=== PATIENT | female | born 1955 | race Caucasian/White ===

== ENCOUNTER 2017-12-15 09:56 | Emergency (ER) | payer OTHER ==
[~2017-12-15] VITALS: Ht 162.6 cm; Wt 136.1 kg
[~2017-12-15 09:56] MED LIST: AMLODIPINE BESY10 M1 PO; ASPIRIN EC81 M1 PO; ATHENOL325 MG PO; ATORVASTATIN CA40 M1 PO; AUGMENTIN 875-1 EACH PO; CHERATUSSIN AC118 M1 PO; FERROUS SULFAT325 M3 PO; HUMALOG KW100 UNIT/1 SC; LANTUS SOL100 UNIT/1 SC; LEVEMIR FL100 UNIT/1 SC; LISINOPRIL-HCT1 EACH PO; TRADJENTA5 M1 PO; VITAMIN D2000 UNIT PO
--- NOTE | 2017-12-15 10:03 | ED GENERAL ADULT ---
History of Present Illness General Chief Complaint: General Adult Stated Complaint: GENERAL WEAKNESS Source: patient, family, old records Exam Limitations: no limitations Vital Signs & Intake/Output Vital Signs & Intake/Output Vital Signs Date Time Temp Pulse Resp B/P B/P Pulse O2 O2 Flow FiO2 Mean Ox Delivery Rate 12/15 1303 97.6 90 18 133/62 97 Room Air 12/15 1033 97.2 80 18 131/80 96 Room Air 12/15 1010 95 Room Air Allergies Coded Allergies: NO KNOWN ALLERGIES (12/13/17) Reconcile Medications Acetaminophen (Athenol) 325 MG TABLET 2 TAB PO DAILY PAIN (Reported) Albuterol Sulfate (Proair Hfa) 90 MCG HFA.AER.AD 2 PUF INH Q4-6 PRN PRN COUGH/ SOB Amlodipine Besylate 10 MG TABLET 1 TAB PO DAILY BP (Reported) Amlodipine Besylate 10 MG TABLET 1 TAB PO DAILY htn Amoxicillin/Potassium Clav (Augmentin 875-125 Tablet) 875 MG-125 MG TABLET 1 TAB PO BID bronchitis, mild uti Aspirin (Ecotrin*) 81 MG TABLET.DR 1 TAB PO DAILY HEART/BLOOD (Reported) Atorvastatin Calcium 40 MG TABLET 1 TAB PO DAILY CHOLESTEROL (Reported) Cholecalciferol (Vitamin D3) (Vitamin D) 2,000 UNIT CAPSULE 1 CAP PO DAILY SUPPLEMENT (Reported) Codeine Phosphate/Guaifenesi (Cheratussin AC Syrup) 10 MG-100 MG/5 ML LIQUID 10 ML PO Q6H PRN COUGH Ferrous Sulfate 325 MG (65 MG IRON) TABLET 1 TAB PO DAILY SUPPLEMENT ( Reported) Insulin Detemir (Levemir Flextouch) 100 UNIT/ML (3 ML) INSULN.PEN 12 UNITS SC QPM DM (Reported) Insulin Detemir (Levemir Flextouch) 100 UNIT/ML (3 ML) INSULN.PEN 12 UNITS SC QHS diabetes Insulin Lispro (Humalog Kwikpen U-100) 100 UNIT/ML INSULN.PEN 15 UNITS SC DAILY DM (Reported) Insulin Lispro (Humalog Kwikpen U-100) 100 UNIT/ML INSULN.PEN 15 UNIT SC ONCE DAILY DIABETES Linagliptin (Tradjenta) 5 MG TABLET 1 TAB PO DAILY DM (Reported) Lisinopril/Hydrochlorothiazide (Lisinopril-Hctz 20-12.5 MG Tab) 20 MG-12.5 MG TABLET 1 TAB PO DAILY BP (Reported) Triage Nurses Notes Reviewed? yes Onset: Gradual Duration: worse persistent since (2 DAYS) Timing: recent history Injury Environment: home Severity: moderate No Modifying Factors: none Associated Symptoms: cough HPI: Patient is a 62-year-old female with history of diabetes presenting to the emergency department with chief complaint of generalized malaise, nonproductive cough has been getting worse over the past 2 days. Patient presents as she was seen and evaluated here 2 days ago, diagnosed with hyperglycemia and urinary tract infection. She's been taking the medication they started her on for the diabetes as well as the medication prescribed for the urinary tract infection. Patient reports that the cough is still persistent. Denies any chest pain or palpitations. Shortness of breath only present with a cough. Denies any unilateral leg swelling. No recent surgery. Patient currently visiting here from [place] because a family member . She does report that she's been under a lot of stress. Denies any increasing depression or anxiety. Reports that she has not had a Swathi over the past several days. (Joya Zuniga) Past History Travel History Traveled to [place] past 21 day No Medical History Any Pertinent Medical History? see below for history Neurological: NONE Cardiovascular: hypertension Respiratory: NONE Gastrointestinal: NONE Hepatic: NONE Renal: NONE Musculoskeletal: osteoarthritis Psychiatric: NONE Endocrine: diabetes Blood Disorders: NONE Surgical History Surgical History: non-contributory Psychosocial History What is your primary language Irish Tobacco Use: Quit >30 days ago Family History Hx Contributory? No (Joya Zuniga) Review of Systems Review of Systems Constitutional: Reports: see HPI, malaise, weakness. Comments Review of systems: See HPI, All other systems negative. Constitutional, no chills fever or weight loss HEENT: No visual changes no sore throat Cardiovascular: No chest pain ,palpitation , orthopnea or ankle swelling Skin, no jaundice no rashes Respiratory: No dyspnea sputum or hemoptysis GI: No nausea no vomiting : No dysuria No hematuria Muscle skeletal: no back pain, no neck pain, Neurologic: No numbness no confusion, no headaches Psych: No stress anxiety or depression,. Heme/endocrine: No bruising no bleeding no polyuria or polydipsia Immunology: No splenectomy or history of AIDS (Joya Zuniga) Physical Exam Physical Exam General Appearance: well developed/nourished, no apparent distress, alert, awake , comfortable, obese Comments: Well-developed well-nourished person in no acute distress HEENT: Pupils equally round and reactive to light and accommodation. Nose is atraumatic. External auditory canal and Tympanic membranes clear. Pharynx normal. No swelling or edema. Clear nasal discharge. Clearing secretions without difficulties. Neck: Supple, no lymphadenopathy, normal range of motion without pain or tenderness Back: Nontender Cardiovascular: Regular rate and rhythms no murmurs rubs or gallops Respiratory: Chest nontender. No respiratory distress.breath sounds clear to auscultation bilaterally. DRY REACTIVE COUGH ON EXAM. Abdomen: Soft, nontender nondistended, no appreciable organomegaly. Normal bowel sounds. No ascites, NO REBOUND OR GAURDING. Extremity: No edema, no calf tenderness to palpation, normal and equal pulses. Muscular strength is 5 out of 5 in the upper extremities bilaterally. Business Travel Consultant strength is equal and symmetric bilaterally. Muscular strength of lower extremities is 4 out of 5 bilaterally. Neuro: Alert oriented x3, motor sensory normal, cranial nerves II through XII grossly intact. Cerebellar testing is unremarkable. Skin: No appreciable rash on exposed skin, skin is warm and dry. Psych: Mood and affect is normal, memory and judgment is normal. Core Measures ACS in differential dx? No CVA/TIA Diagnosis: No Sepsis Present: No Sepsis Focused Exam Completed? No (Claudia LAUGHLIN,Joya) Progress Differential Diagnoses I considered the following diagnoses in my evaluation of the patient: DKA, hyperglycemia, mentation and complains, UTI,ELECTROLYTE ABNORMALITY Plan of Care: Orders Procedure Date/time Status Consistent Carbohydrate 1 12/15 D Active Add-on Test (ER Only) 12/15 1144 Active URINALYSIS 12/15 1144 Complete SERUM OSMOLALITY 12/15 1047 Complete ACETONE 12/15 1047 Complete MISTAKE 12/15 1022 Active RAPID VIRAL INFLUENZA A 12/15 1022 Complete TROPONIN LEVEL 12/15 1021 Complete COMPREHENSIVE METABOLIC PANEL 12/15 1021 Complete CBC WITHOUT DIFFERENTIAL 12/15 1021 Complete FingerStick- Glucose 12/15 1002 Active EKG 12/15 1002 Active Current Medications Sig/Mitzy Start time Last Medication Dose Stop Time Status Admin Sodium Chloride 1,000 ML BOLUS ONE 12/15 1330 AC 12/15 (Normal Saline 0.9%) 12/15 1429 1331 Laboratory Tests 12/15/17 1230: Urinalysis LIGHT H, Urine Color YEL, Urine Clarity HAZY H, Urine pH 6.0, Ur Specific [place] 1.025, Urine Protein 30 H, Urine Ketones NEG, Urine Nitrite NEG, Urine Bilirubin NEG@ICTO, Urine Urobilinogen 0.2, Ur Leukocyte Esterase SMALL H, Ur Microscopic SEDIMENT EXAMINED, Urine RBC 3-5, Urine WBC 25-50 H, Ur Epithelial Cells MOD H, Urine Bacteria MANY H, Urine Hemoglobin SMALL H, Urine Glucose NEG 12/15/17 1047: Anion Gap 16, Estimated GFR 45 L, BUN/Creatinine Ratio 15.8, Glucose 234 H, Serum Osmolality 294, Calcium 9.2, Total Bilirubin 0.5, AST 19, ALT 23, Alkaline Phosphatase 98, Troponin I < 0.01, Total Protein 6.5, Albumin 3.6, Globulin 2.9, Albumin/Globulin Ratio 1.2, CBC w Diff NO MAN DIFF REQ, RBC 3.80 L, MCV 78.3 L , MCH 25.7 L, MCHC 32.9 L, RDW 15.3 H, MPV 6.3 L, Gran % 79.5 H, Lymphocytes % 10.5 L, Monocytes % 6.7, Eosinophils % 2.9, Basophils % 0.4, Absolute Granulocytes 6.5, Absolute Lymphocytes 0.9 L, Absolute Monocytes 0.5, Absolute Eosinophils 0.2, Absolute Basophils 0, Acetone Level NEGATIVE Microbiology 12/15 1048 NASOPHARYN: Influenza Virus A & B Rapid Smear - COMP Diagnostic Imaging: Viewed by Me: Radiology Read. Discussed w/RAD: Radiology Read. Radiology Impression: PATIENT: YUSRA POTTER PRESENT AGE: 62 PATIENT ACCOUNT NO: [id number] : 53 LOCATION: [facility] ORDERING PHYSICIAN: Joya LAUGHLIN SERVICE DATE: 12/15/171026 EXAM TYPE: RAD - XRY-CHEST XRAY, TWO VIEWS EXAMINATION: XR CHEST CLINICAL INFORMATION: Cough. Evaluate for pneumonia. COMPARISON: Previous chest x-ray and chest CT 12/13/2017 TECHNIQUE: 2 views of the chest were obtained. FINDINGS: The cardiac silhouette is upper normal in size. The pulmonary patricia are prominent related to hilar adenopathy. Mediastinal contours are unremarkable. There are multiple pulmonary nodules similar to previous exam. No evidence of acute pneumonia is seen. There is no pleural effusion. Bony structures are unremarkable. IMPRESSION: Stable hilar adenopathy and innumerable bilateral pulmonary nodules from recent chest exams. No evidence of new pneumonia. DICTATED BY: Yusra Underwood MD DATE/TIME DICTATED:12/15/171224 ART HANDLER:DOROTHY DATE/TIME TRANSCRIBED:1224 CONFIDENTIAL, DO NOT COPY WITHOUT APPROPRIATE AUTHORIZATION. < Electronically signed in Other Vendor System> SIGNED BY: Yusra Underwood MD 12/15/17 1232 Initial ED EKG: SINNUS 94 BPM, Comments: Patient slightly unsteady with rolling walker when ambulating 5-10 feet. PT IS WEAKER THEN BASELINE. PT WILL BE TRANSPORTED HOME VIA AMBULANCE DUE TO WEAKNESS AND FALL RISK. Patient feeling much improved after IV hydration. Able to see wench without difficulty. No nausea or vomiting. Cough has subsided after Robitussin with codeine. She'll follow up with her primary care physician in the next 1-2 days. Educated on signs and symptoms return. Patient nontoxic. (Joya Zuniga) Departure Departure Time of Disposition: 1358 Disposition: HOME OR SELF CARE Condition: Stable Clinical Impression Primary Impression: UTI (urinary tract infection) Qualifiers: Urinary tract infection type: site unspecified Hematuria presence: without hematuria Qualified Code: N39.0 - Urinary tract infection, site not specified Secondary Impressions: Cough, Malaise, Weakness Referrals: Unknown Additional Instructions: Follow-up with your primary care physician as soon as he got home. Return for worsening symptoms or concerns. Increase fluids. Continue taking all medications as per history prescribed. Continue antibiotics as prescribed for urinary tract infection. EAT A well-balanced diet. Continue taking diabetic medications as prescribed. Return for worsening symptoms or concerns. Use inhaler as directed. Continue taking cough medication As prescribed. Departure Forms: Customer Survey General Discharge Information Prescriptions: Current Visit Scripts Albuterol Sulfate (Proair Hfa) 2 PUF INH Q4-6 PRN PRN COUGH/SOB #1 INHAL (Joya Zuniga) PA/PIPE SETTER Co-Sign Statement Statement: ED Attending supervision documentation- x I saw and evaluated the patient. I have also reviewed all the pertinent lab results and diagnostic results. I agree with the findings and the plan of care as documented in the TRUMAN's/PIPE SETTER's documentation. [] I have reviewed the ED Record and agree with the PA's/PIPE SETTER's documentation. Additions or exceptions (if any) to the PAs/PIPE SETTER's note and plan are summarized below: [] (Kayla PILLAI,Munir) Critical Care Note Critical Care Note Critical Care Time: non-applicable (Claudia LAUGHLIN,Joya)
[2017-12-15 10:59] LABS: ABSOLUTE BASOPHIL COUNT 0 /CUMM (0.0-0.2); ABSOLUTE EOSINOPHIL COUNT 0.2 /CUMM (0.0-0.7); ABSOLUTE GRANULOCYTE CT 6.5 /CUMM (1.4-6.5); ABSOLUTE LYMPH COUNT 0.9 /CUMM (1.2-3.4); ABSOLUTE MONOCYTE COUNT 0.5 /CUMM (0.10-0.60); BASOPHIL % 0.4 % (0.0-2.0); EOSINOPHIL % 2.9 % (0-5); GRANULOCYTE % 79.5 % (42.2-75.2); HEMATOCRIT 29.8 % (37-47); MEAN CORPUSCULAR HGB 25.7 PG (27.0-31.0); MEAN CORPUSCULAR HGB CONC 32.9 G/DL (33.0-37.0); MEAN CORPUSCULAR VOLUME 78.3 FL (81.0-99.0); MEAN PLATELET VOLUME 6.3 FL (7.4-10.4); PLATELET COUNT 365 /CUMM (130-400); RBC DISTRIBUTION WIDTH 15.3 % (11.5-14.5); WHITE BLOOD CELL COUNT 8.2 /CUMM (4.8-10.8)
--- NOTE | 2017-12-15 12:32 | RADIOLOGY REPORT ---
EXAMINATION: XR CHEST CLINICAL INFORMATION: Cough. Evaluate for pneumonia. COMPARISON: Previous chest x-ray and chest CT 12/13/2017 TECHNIQUE: 2 views of the chest were obtained. FINDINGS: The cardiac silhouette is upper normal in size. The pulmonary patricia are prominent related to hilar adenopathy. Mediastinal contours are unremarkable. There are multiple pulmonary nodules similar to previous exam. No evidence of acute pneumonia is seen. There is no pleural effusion. Bony structures are unremarkable. IMPRESSION: Stable hilar adenopathy and innumerable bilateral pulmonary nodules from recent chest exams. No evidence of new pneumonia.
[2017-12-15 13:03] VITALS: BP 133/62
[2017-12-15] MEDS ORDERED: PROAIR HFA8.5 GM INH ×2 (13:59→16:41)
== END 2017-12-15 15:26 ==
LOC: ERH 09:56
PROVIDERS: Physician Assistant
DX: N39.0 Urinary tract infection, site not specified (principal); R05 Cough; R53.1 Weakness; R53.81 Other malaise; I10 Essential (primary) hypertension; E11.9 Type 2 diabetes mellitus without complications; Z79.4 Long term (current) use of insulin
CPT/HCPCS: 71046; 81001; 87804; 87804-59; 93005; 93010; 96360; 96361